=== PATIENT | male | born 1995 | race Caucasian/White ===

== ENCOUNTER 2017-02-14 15:15 | Emergency (ER) | payer OTHER ==
[~2017-02-14] VITALS: Ht 188 cm; Wt 72.6 kg
[2017-02-14 15:22] VITALS: Ht 188 cm; Wt 72.6 kg
[2017-02-14 16:18] VITALS: BP 110/65
== END 2017-02-14 16:18 | disposition home or self-care (01) ==
LOC: ED 15:15
DX: S86.911A Strain of unspecified muscle(s) and tendon(s) at lower leg level, right leg, initial encounter (principal); X50.1XXA Overexertion from prolonged static or awkward postures, initial encounter; Y93.89 Activity, other specified; Y92.89 Other specified places as the place of occurrence of the external cause; Y99.8 Other external cause status